=== PATIENT | female | born 1990 | race Caucasian/White ===

== ENCOUNTER 2017-06-27 13:20 | Emergency (ER) | payer OTHER ==
[~2017-06-27] VITALS: Ht 170.2 cm; Wt 85.6 kg
[2017-06-27 13:26] VITALS: TEMP 36.9; Ht 170.2 cm; Wt 85.6 kg
[2017-06-27] MEDS ORDERED: PHEN37.585 PO (13:40)
[2017-06-27] MEDS ORDERED: LISI-729 PO (13:40)
--- NOTE | 2017-06-27 13:48 | EMERGENCY ROOM VISIT NOTE ---
History First contact with patient: 13:27 Chief Complaint: ABDOMINAL PAIN Stated Complaint: PRESSURE AND PAIN IN LOWER AB (POSSIBLE MISCARR) Nursing Triage Summary: triage note: Pt reports she saw her POWDER TRUCK DRIVER this week on friday due to missing her period last month and then having bleeding and was passing clots. pt reports her POWDER TRUCK DRIVER told her she could have had a miscarriage. pt reports since last night she has had pain and pressure to abd, lower back and ribs. History of Present Illness The patient is a 26 year old female who presents to the Emergency Room with complaints of heavy vaginal bleeding and lower abdominal cramping/pressure that has been going on all week. The patient reports missing her period in May. She got her menses last June 19. She reports very heavy bleeding. She was bleeding through 2 tampons per hour with heavy clots. The bleeding has slowed down. The patient saw her zipper sewing machine operator earlier this week. She was told that she may have had a miscarriage. She is scheduled for an ultrasound next week. The patient has a history of factor V Leiden. She has been twice. One ended in a miscarriage. She denies any fever or chills. No problems with bowel movements or urination. No nausea or vomiting. Review of Systems 10 system review performed and negative unless noted in HPI or below Past Medical/Surgical History Factor V Leiden Family History Factor V Leiden Social History Smoking Status: Current Every Day Smoker Current/Historical Medications Scheduled Lisinopril (Zestril), 5 MG PO DAILY Phentermine Hcl (Adipex P), 37.5 MG PO DAILY Scheduled PRN Ibuprofen (Motrin), 600 MG PO Q6H PRN for Pain Tramadol (Ultram), 50 MG PO Q4H PRN for Pain Physical Exam Vital Signs Date Time Temp Pulse Resp B/P (MAP) Pulse Ox O2 Delivery O2 Flow Rate FiO2 06/27/17 15:20 98 16 135/78 96 Room Air 06/27/17 13:26 36.9 117 18 127/67 100 Room Air Physical Exam VITALS: Vitals are noted on the nurse's note and reviewed by myself. Vital signs stable. GENERAL: 26-year-old female, in no acute distress, nondiaphoretic, well- developed well-nourished. SKIN: The skin was without rashes, erythema, edema, or bruising. HEAD: Normocephalic atraumatic. NECK: Supple without nuchal rigidity. HEART: Regular rate and rhythm without murmurs gallops or rubs. LUNGS: Clear to auscultation bilaterally without wheezes, rales or rhonchi. No accessory muscle use. ABDOMEN: Positive bowel sounds x 4.Soft, mild tenderness to palpation particularly in the suprapubic region in the left lower quadrant. No guarding or rebound tenderness. Negative Rovsing sign. MUSCULOSKELETAL: No muscle atrophy, erythema, or edema noted. Strength 5/5 throughout. NEURO: Patient was alert and oriented to person place and time. Normal sensation to touch. No focal neurological deficits. Medical Decision & Procedures ER Provider Diagnostic Interpretation: pelvic US IMPRESSION: 1. Endometrial thickness of 9 mm with small amount of fluid within the cervical canal. No intrauterine gestational sac identified. Correlation with beta hCG levels is recommended. 2. No adnexal mass identified. Electronically signed by: Zeb Gale M.D. 06/27/2017 3:27 PM Dictated Date/Time: 06/27/2017 3:25 PM The status of this report is Signed. Draft = Not yet reviewed or approved by Radiologist. Signed = Reviewed and approved by Radiologist. Laboratory Results 06/27/17 13:30 Red Blood Count 4.39, Mean Corpuscular Volume 86.1, Mean Corpuscular Hemoglobin 28.5, Mean Corpuscular Hemoglobin Concent 33.1, Mean Platelet Volume 10.9, Neutrophils (%) (Auto) 75.7, Lymphocytes (%) (Auto) 17.8, Monocytes (%) (Auto) 5.1, Eosinophils (%) (Auto) 1.0, Basophils (%) (Auto) 0.1, Neutrophils # (Auto) 8.33, Lymphocytes # (Auto) 1.96, Monocytes # (Auto) 0.56, Eosinophils # (Auto) 0.11, Basophils # (Auto) 0.01 06/27/17 13:30 Test 06/27/17 13:30 06/27/17 14:00 White Blood Count 11.00 K/uL (4.8-10.8) Red Blood Count 4.39 M/uL (4.2-5.4) Hemoglobin 12.5 g/dL (12.0-16.0) Hematocrit 37.8 % (37-47) Mean Corpuscular Volume 86.1 fL (80-100) Mean Corpuscular Hemoglobin 28.5 pg (25-34) Mean Corpuscular Hemoglobin Concent 33.1 g/dl (32-36) Platelet Count 180 K/uL (130-400) Mean Platelet Volume 10.9 fL (7.4-10.4) Neutrophils (%) (Auto) 75.7 % Lymphocytes (%) (Auto) 17.8 % Monocytes (%) (Auto) 5.1 % Eosinophils (%) (Auto) 1.0 % Basophils (%) (Auto) 0.1 % Neutrophils # (Auto) 8.33 K/uL (1.4-6.5) Lymphocytes # (Auto) 1.96 K/uL (1.2-3.4) Monocytes # (Auto) 0.56 K/uL (0.11-0.59) Eosinophils # (Auto) 0.11 K/uL (0-0.5) Basophils # (Auto) 0.01 K/uL (0-0.2) RDW Standard Deviation 44.4 fL (36.4-46.3) RDW Coefficient of Variation 14.1 % (11.5-14.5) Immature Granulocyte % (Auto) 0.3 % Immature Granulocyte # (Auto) 0.03 K/uL (0.00-0.02) Anion Gap 5.0 mmol/L (3-11) Est Creatinine Clear Calc Drug Dose 151.1 ml/min Estimated GFR () 143.7 Estimated GFR (Non- 124.0 BUN/Creatinine Ratio 15.2 (10-20) Calcium Level 8.6 mg/dl (8.5-10.1) Total Bilirubin 0.7 mg/dl (0.2-1) Aspartate Amino Transf (AST/SGOT) 11 U/L (15-37) Alanine Aminotransferase (ALT/SGPT) 16 U/L (12-78) Alkaline Phosphatase 107 U/L (45-117) Total Protein 7.7 gm/dl (6.4-8.2) Albumin 3.9 gm/dl (3.4-5.0) Globulin 3.8 gm/dl (2.5-4.0) Albumin/Globulin Ratio 1.0 (0.9-2) Human Chorionic Gonadotropin, Quant < 1 mIU/mL Urine Color YELLOW Urine Appearance CLEAR (CLEAR) Urine pH 7.5 (4.5-7.5) Urine Specific [place] 1.017 (1.000-1.030) Urine Protein NEG (NEG) Urine Glucose (UA) NEG (NEG) Urine Ketones NEG (NEG) Urine Occult Blood TRACE (NEG) Urine Nitrite NEG (NEG) Urine Bilirubin NEG (NEG) Urine Urobilinogen NEG (NEG) Urine Leukocyte Esterase MODERATE (NEG) Urine WBC (Auto) 5-10 /hpf (0-5) Urine Hyaline Casts (Auto) 1-5 /lpf (0-5) Urine Epithelial Cells (Auto) >30 /lpf (0-5) Urine Bacteria (Auto) NEG (NEG) Urine Crystals CALCIUM OXALATE (NONE Medications Administered Medications (Trade) Dose Ordered Sig/Dominique Route Start Time Stop Time Status Last Admin Dose Admin Morphine Sulfate (MoRPHine SULFATE INJ) 4 mg Q1H PRN IV 06/27/17 15:15 07/11/17 15:14 06/27/17 16:04 4 MG Ketorolac Tromethamine (Toradol Inj) 30 mg NOW STAT IV 06/27/17 15:02 06/27/17 15:03 DC 06/27/17 16:05 30 MG Potassium Chloride (Klor-Con M10) 40 meq NOW STAT PO 06/27/17 15:45 06/27/17 15:46 DC 06/27/17 16:03 40 MEQ ED Course Patient was seen and examined Vital signs including blood pressure were reviewed medications list was verified with patient Labs were obtained, and a saline lock was established The patient was medicated with Toradol, morphine and given 1 dose of potassium Imaging was performed and reviewed The patient was reassessed and more comfortable. We discussed her results. The case was also discussed with supervising physician, who is in agreement with my plan I reviewed discharge instructions the patient. They voiced understanding and had no further questions. Medical Decision Differential diagnosis: Menorrhagia, miscarriage, missed , UTI, appendicitis, ovarian cyst, PID, endometriosis This patient is a 26-year-old female presents to the emergency department with heavy vaginal bleeding and lower abdominal cramping after missing her period the month of May. On exam: The patient had diffuse lower abdominal tenderness. She did not have any rebound tenderness. Labs reveal mild leukocytosis and slightly low potassium. Otherwise, they were unremarkable. Her hCG is negative. Pelvic ultrasound did not show any signs of a gestational sac. No ovarian cyst or torsion. I had a discussion with the patient regarding a possible appendicitis. I have a very low suspicion of this as her symptoms have been going on for quite some time. I would expect the patient to be much sicker at this point. She understands this, and does not want to pursue a CT of the abdomen and pelvis at this time. She was encouraged to return to the emergency department immediately for any new symptoms. She is in agreement with this plan. This chart was completed in part utilizing [employer] Speech Voice Recognition software. Attempts were made to minimize the grammatical errors, random word insertions, pronoun errors and incomplete sentences. Any formal questions or concerns about the content, text or information contained within the body of this dictation should be directly addressed to the provider for clarification. Medication Reconcilliation Current Medication List: was personally reviewed by me Blood Pressure Screening Patient's blood pressure: Normal blood pressure Impression Primary Impression: Abdominal pain Additional Impression: Vaginal bleeding Departure Information Dispostion Home / Self-Care Condition GOOD Prescriptions Tramadol (Ultram) 50 Mg Tab 50 MG PO Q4H Y for Pain, #12 TAB Prov: Lisa Hall PA-C 06/27/17 Ibuprofen (Motrin) 600 Mg Tab 600 MG PO Q6H Y for Pain, #12 TAB For Initial Treatment Prov: Lisa Hall PA-C 06/27/17 Referrals No Doctor, Assigned (PCP) Patient Instructions My [facility] Additional Instructions You were evaluated in the emergency department for abdominal pain and vaginal bleeding. The test was negative. Ibuprofen 600 mg every 6 hours Ultram 1 tab every 4 hours for severe pain. This may be taken with ibuprofen. Please follow-up with your zipper sewing machine operator and your primary care physician for a recheck as soon as possible. As discussed, do not hesitate to return to the emergency department with any new , worsening or concerning symptoms; especially, fever, worsening pain, vomiting increased vaginal bleeding (3 pads per hour) Problem Qualifiers
[2017-06-27 14:03] LABS: BASO % 0.1 %; BASO ABS # 0.01 K/uL (0-0.2); COMPLETE YES; HEMATOCRIT 37.8 % (37-47); IG% 0.3 %; LYMPH % 17.8 %; LYMPH ABS # 1.96 K/uL (1.2-3.4); MEAN CELL VOLUME 86.1 fL (80-100); MEAN CORPUSCULAR HEMOGLOBIN 28.5 pg (25-34); MEAN CORPUSCULAR HGB CONC 33.1 g/dl (32-36); MEAN PLATELET VOLUME 10.9 fL (7.4-10.4); MONO % 5.1 %; NEUT % 75.7 %; PLATELET COUNT 180 K/uL (130-400); RED BLOOD COUNT 4.39 M/uL (4.2-5.4)
[2017-06-27 14:21] LABS: BUN/CREATININE RATIO 15.2 (10-20); CALCIUM 8.6 mg/dl (8.5-10.1); CREATININE 0.64 mg/dl (0.60-1.20); POTASSIUM 3.3 mmol/L (3.5-5.1)
[2017-06-27 14:26] LABS: URINE APPEARANCE CLEAR (CLEAR); URINE BILIRUBIN NEG (NEG); URINE COLOR YELLOW; URINE EPITHELIAL CELL AUTO >30 /lpf (0-5); URINE NITRITE NEG (NEG); URINE PH 7.5 (4.5-7.5); URINE SPECIFIC GRAVITY 1.017 (1.000-1.030); UROBILINOGEN NEG (NEG)
[2017-06-27 14:27] LABS: MANUAL MICROSCOPIC REQUIRED? NO; REVIEW REQ? YES
[2017-06-27] MEDS ORDERED: KETOROLAC TROMETHAMINE 30 MG/ML VIAL IV STA (15:02)
[2017-06-27] MEDS ORDERED: MoRPHine SULFATE 4 MG/ML 1 ML CARP\\VIAL IV PRN (15:15)
--- NOTE | 2017-06-27 15:28 | DIAGNOSTIC IMAGING REPORT ---
TRANSVAG-FEMALE PELVIS CLINICAL HISTORY: Missed period. Now with heavy bleeding and cramping. Possible miscarriage. COMPARISON STUDY: No previous studies for comparison. TECHNIQUE: Transabdominal and transvaginal sonography of the pelvis was performed. FINDINGS: The uterus measures 9.3 x 4.3 x 6.6 cm. Endometrium measures 9 mm in thickness. There is a small amount of fluid within the cervical canal. No intrauterine gestational sac is identified. The right ovary measures 3.3 x 1.7 x 3.9 cm and the left measures 4.8 x 1.8 x 3.1 cm. Color flow is identified within each ovary. There is no free fluid. IMPRESSION: 1. Endometrial thickness of 9 mm with small amount of fluid within the cervical canal. No intrauterine gestational sac identified. Correlation with beta hCG levels is recommended. 2. No adnexal mass identified. Electronically signed by: Zeb Gale M.D. 06/27/2017 3:27 PM Dictated Date/Time: 06/27/2017 3:25 PM
[2017-06-27] MEDS ORDERED: POTASSIUM CHLORIDE 10 MEQ TABCR PO STA (15:45)
[2017-06-27] MEDS ORDERED: TRAM-10 PO (16:24)
[2017-06-27] MEDS ORDERED: IBUP600T44 PO (16:24)
[2017-06-27 17:15] VITALS: BP 127/74; PULSE 90; O2SAT 97
== END 2017-06-27 17:33 | disposition home or self-care (01) ==
LOC: EDBD 13:22 → C.EDB 13:22 → C.EDC 17:33
DX: R10.30 Lower abdominal pain, unspecified (principal); N93.9 Abnormal uterine and vaginal bleeding, unspecified; E87.6 Hypokalemia; D68.51 Activated protein C resistance; F17.200 Nicotine dependence, unspecified, uncomplicated

== ENCOUNTER 2017-08-07 11:07 | Emergency (ER) | payer OTHER ==
[~2017-08-07] VITALS: Ht 170.2 cm; Wt 84.6 kg
[~2017-08-07 11:07] MED LIST: IBUP600T44 PO; LISI-729 PO; PHEN37.585 PO; TRAM-10 PO
[2017-08-07 11:15] VITALS: TEMP 37.4; Ht 170.2 cm; Wt 84.6 kg
[2017-08-07] MEDS ORDERED: ACETAMINOPHEN 500 MG TAB PO STA (12:02)
--- NOTE | 2017-08-07 12:24 | DIAGNOSTIC IMAGING REPORT ---
CHEST ONE VIEW PORTABLE CLINICAL HISTORY: cough, flu BODYACHES, FEVER. SORE THROAT. COMPARISON STUDY: No previous studies for comparison. FINDINGS: The cardiac and mediastinal contours are normal. There is no evidence of focal pulmonary consolidation. There is no evidence of failure. No pleural effusions are visualized.[ IMPRESSION: No active disease in the chest. Electronically signed by: Ke Valente M.D. 08/07/2017 12:23 PM Dictated Date/Time: 08/07/2017 12:23 PM
[2017-08-07 12:46] LABS: INFLUENZA B ANTIGEN Neg for Influ B (NEG)
[2017-08-07 13:15] VITALS: BP 133/77; PULSE 120; O2SAT 95
--- NOTE | 2017-08-07 18:58 | EMERGENCY ROOM VISIT NOTE ---
History Report prepared by Kaitlynn: Bear Bradshaw Under the Supervision of: Dr. Homer Barton M.D. First contact with patient: 11:45 Chief Complaint: FLU LIKE SX Stated Complaint: FEVER, COUGH, BODY ACHES, SORE THROAT History of Present Illness The patient is a 26 year old female who presents to the Emergency Room with complaints of flu-like symptoms that began yesterday morning. She denies any known past medical history. At that time, the patient woke up feeling generalized body aches. Her symptoms then progressed into a headache and chills. She took her temperature that night because her symptoms worsened and found it to be 104 F. She then began having a productive cough with her symptoms persisting into today. Pt denies LOC, diaphoresis, visual changes, neck pain, chest pain, breathing difficulties, nausea, vomiting, abdominal pain , back pain, melena, hematochezia, urinary symptoms, numbness, weakness, lymphadenopathy, rash, or other complaints. Source of History: patient Onset: yesterday morning Position: other (Global) Symptom Intensity: moderate Quality: other (Flu-like symptoms) Timing: constant Associated Symptoms: + fevers, + chills, + headache, + cough (productive) Note: She is experiencing generalized body aches. Review of Systems See HPI for pertinent positives and negatives. A total of ten systems were reviewed and were otherwise negative. Past Medical & Surgical Medical Problems: (1) No Known Active Medical Problems Family History Cancer Diabetes mellitus Hypertension Lung disease Social History Smoking Status: Current Every Day Smoker Smokeless Tobacco Use: No Drug Use: none Marital Status: Housing Status: lives with family Current/Historical Medications Scheduled Lisinopril (Zestril), 5 MG PO DAILY Phentermine Hcl (Adipex P), 37.5 MG PO DAILY Allergies Coded Allergies: No Known Allergies (Unverified , 08/07/17) Physical Exam Vital Signs Date Time Temp Pulse Resp B/P (MAP) Pulse Ox O2 Delivery O2 Flow Rate FiO2 08/07/17 13:15 120 18 133/77 95 08/07/17 11:15 37.4 116 16 118/77 98 Room Air Physical Exam GENERAL: Awake, alert, non-ill appearing, no distress HEAD: Normocephalic, atraumatic. No edema. EYES: Normal conjunctiva. Sclera non-icteric. EARS: Right TM normal. Left TM normal. NOSE: Mild congestion. OROPHARYNX: Lips, tongue, and mucosa unremarkable. No erythema or exudate. NECK: Supple. No nuchal rigidity. FROM. No adenopathy. Negative jolt accentuation test. RESPIRATORY: CTA bilaterally. No wheezes rales or rhonchi. CARDIAC: Borderline tachycardic rate, normal rhythm. ABDOMEN: Soft, non distended. No tenderness to palpation. NEURO: Normal sensorium. SKIN: No rash or jaundice noted Medical Decision & Procedures ER Provider Diagnostic Interpretation: Radiology results as stated below per my review and radiologist interpretation: CHEST ONE VIEW PORTABLE CLINICAL HISTORY: cough, flu BODYACHES, FEVER. SORE THROAT. COMPARISON STUDY: No previous studies for comparison. FINDINGS: The cardiac and mediastinal contours are normal. There is no evidence of focal pulmonary consolidation. There is no evidence of failure. No pleural effusions are visualized.[ IMPRESSION: No active disease in the chest. Electronically signed by: Ke Valente M.D. 08/07/2017 12:23 PM Dictated Date/Time: 08/07/2017 12:23 PM Laboratory Results Test 08/07/17 12:10 Influenza Type A Antigen Neg for Influ A (NEG) Influenza Type B Antigen Neg for Influ B (NEG) Laboratory results reviewed by me Medications Administered Medications (Trade) Dose Ordered Sig/Dominique Route Start Time Stop Time Status Last Admin Dose Admin Acetaminophen (Tylenol Tab) 1,000 mg NOW STAT PO 08/07/17 12:02 08/07/17 12:03 DC 08/07/17 12:09 1,000 MG ED Course 1145: The patient was evaluated in room B4A. A complete history and physical exam was performed. 1202: Ordered Tylenol Tab 1000 mg PO 1318: I reevaluated the patient. Discussed results and discharge instructions: She verbalized understanding and agreement. The patient is ready for discharge. Medical Decision Triage Nursing notes reviewed and agree them. The patient's history was concerning for fever. Differential diagnosis: Etiologies such as otitis, pharyngitis, pneumonia, influenza,meningitis, urinary tract infection, sepsis, bacteremia, viral syndrome, as well as others were entertained. Physical examination: . Nontoxic. No meningeal findings. No hypoxia. ER treatment provided: Tylenol On reassessment the patient felt better. Diagnostics interpreted by me: The labs revealed unremarkable flu test. Imaging studies: This x-ray as above The patient is doing well. Her daughter has a viral-like syndrome and otitis media. Her had the same. I suspect the patient has the same as well. By the evaluation outlined above emergent etiologies such as otitis, pharyngitis, pneumonia, meningitis, urinary tract infection, sepsis, bacteremia , as well as others were deemed relatively unlikely. The patient and were informed about the findings as listed above. All questions were answered and they were pleased with the treatment. Return instructions were outlined and the patient was discharged in stable condition. Outpatient prescription management: None Referral: The patient was referred back to her primary care physician for follow-up in 2 to 3 days for a recheck of the current condition. Medication Reconcilliation Current Medication List: was personally reviewed by me Blood Pressure Screening Patient's blood pressure: Normal blood pressure Blood pressure disposition: Did not require urgent referral Impression Primary Impression: Influenza-like illness Scribe Attestation The scribe's documentation has been prepared under my direction and personally reviewed by me in its entirety. I confirm that the note above accurately reflects all work, treatment, procedures, and medical decision making performed by me. Departure Information Dispostion Home / Self-Care Referrals No Doctor, Assigned (PCP) Forms HOME CARE DOCUMENTATION FORM, IMPORTANT VISIT INFORMATION, Work Instructions Patient Instructions My [facility] Additional Instructions Acetaminophen(Tylenol) may be used for fever or pain. Use 1000mg every six hours as needed. Avoid using more than 4000mg in a 24 hour period. (AND/OR) Ibuprofen(Motrin, Advil) may be used for fever or pain. Use 600mg every six hours as needed. Take with food. Avoid using more than 2400mg in a 24 hour period. Do not use 2400mg per day for more than three consecutive days without physician direction. Prolonged inappropriate use can lead to stomach upset or ulcers. Afrin nasal spray: 2-3 sprays to each nostril twice daily as needed for congestion. Do not use for more than 3-4 days because it can lead to worsening rebound congestion. Rest and drink plenty of fluids. Controlling your fever with Tylenol and Ibuprofen as above will make you feel better. Wash your hands after nose blowing, sneezing, or coughing. Most germs are spread through contact, therefore improper hygiene may result in your close contacts and loved ones becoming ill just like you. Return to the ER for severe headache, neck stiffness, chest pain, difficulty breathing, fevers, vomiting, worsening of your condition, or as needed. Follow up with your primary physician this week for a recheck of your current condition.
== END 2017-08-07 13:25 | disposition home or self-care (01) ==
LOC: C.EDB 11:08
DX: R50.9 Fever, unspecified (principal); R05 Cough; R51 Headache; J02.9 Acute pharyngitis, unspecified; R52 Pain, unspecified

== ENCOUNTER 2023-03-04 07:36 | Inpatient (IN) ==
--- NOTE | 2023-02-28 11:07 | Anesthesiology Consultation ---
Date of Service February 28, 2023 Assessment & Plan (1) Encounter for pre-operative examination: Chart Review Chart Review: entry clerk initiated Pt following with [facility] Cement Conveyor Operator and M. Plan for c/s at 37 weeks 2/2 Gestational HTN (per chart review, pt had pre-eclamsia with first which resulted in c/s; baby was also breech). BP has been stable at recent visits. Pt following gestational diabetes diet and using insulin. History Surgery Operation Date: 03/04/23 09:30 Proposed Procedures p Repeat Section - Alanna Lim MD, PhD Height/Weight Height: 5 ft 7 in Weight: 106.594 kg Allergies Allergy/AdvReac Type Severity Reaction Status Date / Time No Known Drug Allergies Allergy Verified 02/28/23 10:03 Medications Home Medications Medication Instructions Recorded Confirmed Last Taken albuterol sulfate 90 mcg/actuation 2 puff inhalation Q6H PRN 02/28/23 02/28/23 Unknown aerosol inhaler Shortness Of Breath aspirin 81 mg capsule 81 mg PO HS 02/28/23 02/28/23 Unknown insulin glargine 100 unit/mL (3 15 unit subcut HS 02/28/23 02/28/23 Unknown mL) subcutaneous pen (Lantus Solostar U-100 Insulin) insulin glargine 100 unit/mL (3 20 unit subcut PENDING SALE TO [facility] 02/28/23 02/28/23 Unknown mL) subcutaneous pen (Lantus Solostar U-100 Insulin) iron,carbonyl 65 mg-vitamin C 125 1 tab PO BID 02/28/23 02/28/23 Unknown mg tablet,delayed release (Vitron-C) metformin 500 mg tablet 500 mg PO BID 02/28/23 02/28/23 Unknown vit no.95-ferrous 1 tab PO HS 02/28/23 02/28/23 Unknown fumarate 28 mg-folic acid 800 mcg tablet () trazodone 100 mg tablet 100 mg PO HS 02/28/23 02/28/23 Unknown Past Medical History Medical History (Updated 02/28/23 @ 11:05 by Anita Bocanegra PA-C) Factor V Leiden carrier baby aspirin daily, denies any history of blood clots Gestational diabetes using insulin Gestational hypertension per chart review; pf following with [facility] and monitoring History of COVID-2020--mild symptoms, does have intermittent coughing since then and was prescribed inhaler (per pt has not used inhaler at all during the last 9 months) History of pre-eclampsia per chart, c/s in 2016 was 2/2 breech and preeclampsia Migraine with aura Two vessel umbilical cord Past Family History Family History Father Deep vein thrombosis Factor V Leiden Has hx clots Clotting disorder Mother Factor V Leiden Does not think had clots Clotting disorder Other Diabetes Hypertension No family history of adverse response to anesthesia Denies family history of Ovarian cancer Breast cancer Colorectal cancer Uterine cancer Past Surgical History Surgical History (Updated 02/28/23 @ 11:00 by Anita Bocanegra PA-C) History of colonoscopy S/P per chart review, c/s in 2016 2/2 breech and preeclampsia S/P dilation and curettage Social History Smoking Status: Former smoker Do You Dip or Chew Tobacco: No Smoking End Date: quit 8 months ago Hx Alcohol Use: No (none since , prior 2x a year) Hx Substance Use: No substance use type: does not use Testing Laboratory Results 02/24/23: WBC: 10.95 H/H: 11.9/36.4 PLATELETS: 152 SODIUM: 136 POTASSIUM: 4.3 CHLORIDE: 104 CO2: 20 BUN: 8 CREATININE: 0.5 GLUCOSE: 76 AST: 7 ALT: 7 Alk Phos: 117
[~2023-03-04 07:36] MED LIST changes: +CITRIC ACID/SODIUM CITRATE 15 ML UDC PO SCH; -IBUP600T44 PO; +LACTATED RINGER'S 1,000 ML IV SCH; -LISI-729 PO; -PHEN37.585 PO; -TRAM-10 PO; +ceFAZolin 3,000 MG in DEXTROSE 5% 50 ML IV SCH
--- NOTE | 2023-03-04 08:06 | History & Physical Bridge Note ---
Date of Service March 04, 2023 History & Physical Bridge Note I have examined the patient, reviewed the History & Physical and in the interval since the performance of the History & Physical I have noted the following changes of clinical significance: no changes noted
--- NOTE | 2023-03-04 08:06 | Discharge Summary ---
Date of Service March 04, 2023 Admission HPI Per Admitting Provider Patient is a 32-year-old -0-3-1 at 37 weeks and 3 days scheduled for elective repeat at 37 weeks for gestational hypertension in . Patient was diagnosed with gestational hypertension on February 20. is also complicated by insulin controlled gestational diabetes. She was on 20 units prior to breakfast and 15 units at bedtime. She is also taking metformin 500 mg twice daily. also complicated by two-vessel cord, migraine with aura, heterogeneous factor V Leiden, antepartum anemia, excessive growth in the third trimester, history of preeclampsia last , rubella nonimmune, class I obesity Discharge Data Procedures Performed Operation Date: 03/04/23 09:30 Repeat [facility] Hospital Course (1) delivery delivered: (2) Heterozygous factor V Leiden affecting in third trimester, antepartum: Pt discharged home on Lovenox x 6 weeks
[2023-03-04] MEDS ORDERED: SODIUM CHLORIDE 0.9% 250 ML IV PRN (08:48)
[2023-03-04] MEDS ORDERED: LACTATED RINGER'S 1,000 ML IV PRN (09:23)
[2023-03-04] MEDS ORDERED: OXYTOCIN 30 UNITS/500 ML BAG IV PRN (09:23)
[2023-03-04] MEDS ORDERED: LIDOCAINE 1% LOCAL 20 ML VIAL INFIL PRN (09:23)
[2023-03-04] MEDS ORDERED: LACTATED RINGER'S 1,000 ML IV SCH ×3 (09:30→11:30)
[2023-03-04] MEDS ORDERED: ONDANSETRON INJ 2 MG/ML 2 ML VIAL ONE (09:52)
[2023-03-04] MEDS ORDERED: MoRPHine SULFATE PF 1 MG/ML 10 ML AMP/VIAL ONE (10:01)
[2023-03-04] MEDS ORDERED: fentaNYL citrate PF 100 MCG/2 ML VIAL ONE (10:01)
--- NOTE | 2023-03-04 10:14 | Anesthesiology Consultation ---
Date of Service March 04, 2023 Assessment & Plan Chart Review Chart Review: Acceptable Risk for Surgery ASA ASA3 Proposed Anesthesia Anesthesia Type: Spinal (back up GA) Risk / Benefits Reviewed With: PT / POA / Parent / Guardian, Accepts Plan and Informed Consent Obtained History Surgery Operation Date: 03/04/23 09:30 Proposed Procedures p Repeat Section - Alanna Lim MD, PhD Height/Weight Height: 5 ft 7 in Weight: 107.501 kg Allergies Allergy/AdvReac Type Severity Reaction Status Date / Time No Known Drug Allergies Allergy Verified 02/28/23 10:03 Medications Home Medications Medication Instructions Recorded Confirmed Last Taken albuterol sulfate 90 mcg/actuation 2 puff inhalation Q6H PRN 02/28/23 02/28/23 Unknown aerosol inhaler Shortness Of Breath aspirin 81 mg capsule 81 mg PO 02/28/23 03/04/23 03/02/23 20:00 insulin glargine 100 unit/mL (3 15 unit subcut 02/28/23 03/04/23 03/03/23 20:00 mL) subcutaneous pen (Lantus Solostar U-100 Insulin) insulin glargine 100 unit/mL (3 20 unit subcut [facility] 02/28/23 03/04/23 03/03/23 07:30 mL) subcutaneous pen (Lantus Solostar U-100 Insulin) iron,carbonyl 65 mg-vitamin C 125 1 tab PO BID 02/28/23 03/04/23 03/02/23 20:00 mg tablet,delayed release (Vitron-C) metformin 500 mg tablet 500 mg PO BID 02/28/23 03/04/23 03/03/23 20:00 vit no.95-ferrous 1 tab PO 02/28/23 03/04/23 03/02/23 20:00 fumarate 28 mg-folic acid 800 mcg tablet () trazodone 100 mg tablet 100 mg PO 02/28/23 03/04/23 03/02/23 20:00 Active Medications Generic Name Dose Route Start Last Admin Trade Name Freq PRN Reason Stop Dose Admin Lactated Ringer's 1,000 mls @ 999 mls/hr 03/04/23 09:30 03/04/23 10:13 Lr IV 03/04/23 10:30 Not Given .Q1H1M ZULAY Lactated Ringer's 1,000 mls @ 125 mls/hr 03/04/23 09:45 03/04/23 10:13 Lr IV 04/03/23 09:44 Not Given .Q8H ZULAY NPO Date Last Intake of Fluids: 03/03/23 Time Last Intake of Fluids: 17:00 Date Last Intake of Solids: 03/03/23 Time Last Intake of Solids: 17:00 Past Medical History Medical History (Updated 03/04/23 @ 09:16 by Alanna Lim MD, PhD) Anxiety Factor V Leiden carrier baby aspirin daily, denies any history of blood clots Gestational diabetes using insulin Gestational hypertension per chart review; pf following with MFM and monitoring History of COVID-19 2020--mild symptoms, does have intermittent coughing since then and was prescribed inhaler (per pt has not used inhaler at all during the last 9 months) History of pre-eclampsia per chart, c/s in 2016 was 2/2 breech and preeclampsia Migraine with aura Two vessel umbilical cord Exercise / Class Metabolic Activity 1 > 8 Run/Swim/Ski/Tennis Past Family History Family History Father Deep vein thrombosis Factor V Leiden Has hx clots Clotting disorder Mother Factor V Leiden Does not think had clots Clotting disorder Other Diabetes Hypertension No family history of adverse response to anesthesia Denies family history of Ovarian cancer Breast cancer Colorectal cancer Uterine cancer Past Surgical History Surgical History (Updated 03/04/23 @ 09:16 by Alanna Lim MD, PhD) History of colonoscopy S/P per chart review, c/s in 2016 2/2 breech and preeclampsia S/P dilation and curettage Past Anesthesia History No Hx of Anesthesia Complications and No Family Hx of Anesthesia Complications History of PONV No Hx of PONV and No Hx of Motion Sickness Social History Smoking Status: Former smoker Do You Dip or Chew Tobacco: No Smoking End Date: quit 8 months ago Hx Alcohol Use: No (none since , prior 2x a year) Hx Substance Use: No substance use type: does not use Review of Systems ROS Unobtainable: All systems reviewed & are unremarkable except as noted in HPI & below Physical Exam Vital Signs Last Vital Signs Temp 37 C 08/29/23 08:24 Pulse 93 H 03/04/23 08:24 Resp 20 03/04/23 08:24 BP 135/82 03/04/23 08:24 Constitutional no acute distress ENMT Mouth: no dentition abnormality Thyromental Distance: > or= 3.5 Finger Breadths Mallampati Class: II Neck normal visual inspection and trachea midline Respiratory normal respiratory effort Auscultation: lungs clear to auscultation bilaterally Cardiovascular Rate/Rhythm: regular rate and regular rhythm Musculoskeletal Spine: normal cervical ROM Extremities: extremities normal to inspection Skin no rashes Neurologic moves all extremities Testing Laboratory Results Blood Type A Positive 03/04/23 07:55 Antibody Screen NEGATIVE 03/04/23 07:55 03/04/23 07:59 POC Glucose 101 H
[2023-03-04] MEDS ORDERED: PROMETHAZINE HCL 12.5 MG in SODIUM CHLORIDE 0.9% 50 ML IV PRN (10:16)
[2023-03-04] MEDS ORDERED: MoRPHine SULFATE PF 1 MG/ML 10 ML AMP/VIAL INT SPINAL ONE (10:16)
[2023-03-04] MEDS ORDERED: LACTATED RINGER'S 500 ML IV PRN (10:16)
[2023-03-04] MEDS ORDERED: MEPERIDINE HCL 25 MG/ML CARP/VIAL IV PRN (10:16)
[2023-03-04] MEDS ORDERED: NALOXONE HCL 1 MG in SODIUM CHLORIDE 0.9% 1000ML 1,000 ML IV PRN (10:16)
[2023-03-04] MEDS ORDERED: HYDROmorphone INJ 0.5 MG/0.5 ML SYR IV PRN (10:16)
[2023-03-04] MEDS ORDERED: MoRPHine SULFATE 2 MG/ML CARP IV PRN (10:16)
[2023-03-04] MEDS ORDERED: diphenhydrAMINE 50 MG/ML VIAL IV PRN (10:16)
[2023-03-04] MEDS ORDERED: NALOXONE HCL 0.4 MG/1 ML VIAL/CARP IV PRN (10:16)
[2023-03-04] MEDS ORDERED: NALOXONE HCL 0.08 MG in SYRINGE 1.8 ML IV PRN (10:16)
[2023-03-04] MEDS ORDERED: ePHEDrine sulfate 50 MG/ML AMP IV PRN (10:16)
[2023-03-04] MEDS ORDERED: ONDANSETRON INJ 2 MG/ML 2 ML VIAL IV PRN (10:16)
[2023-03-04] MEDS ORDERED: DC INTRASPINAL MORPHINE SCH (10:30)
[2023-03-04] MEDS ORDERED: SODIUM CHLORIDE 0.9% 1000ML 1,000 ML IV SCH (10:30)
[2023-03-04] MEDS ORDERED: NO NARCOTICS OR SEDATIVES SCH (10:30)
[2023-03-04] MEDS ORDERED: PHENYLEPHRINE 100MCG/ML 5ML SYR ONE (10:54)
[2023-03-04] MEDS ORDERED: MAGNESIUM HYDROXIDE SUSP 30 ML UDC PO PRN (11:22)
[2023-03-04] MEDS ORDERED: DIPHTHERIA/TETANUS/PERTUSSIS Vaccine (Tdap, Age 7+yrs) 0.5mL SYR/VL IM ONE (11:22)
[2023-03-04] MEDS ORDERED: HYDROCORTISONE ACETATE 25 MG SUPP PR PRN (11:22)
[2023-03-04] MEDS ORDERED: BENZOCAINE 20% SPRY 85 APPLN/85 GM CAN EXT PRN (11:22)
[2023-03-04] MEDS ORDERED: SENNA 8.6 MG TAB PO PRN (11:22)
[2023-03-04 11:23] LABS: Basophils # (auto) 0.02 K/uL (0.00-0.20); Basophils % (auto) 0.2 %; Eosinophils # (auto) 0.03 K/uL (0.00-0.50); Eosinophils % (auto) 0.3 %; Hematocrit (blood only) 35.1 % (37.0-47.0); Hemoglobin 11.5 g/dl (12.0-16.0); Immature Granulocytes # (auto) 0.06 K/uL (0.01-0.20); Immature Granulocytes % (auto) 0.6 %; Lymphocytes # (auto) 1.83 K/uL (1.20-3.40); Lymphocytes % (auto) 18.2 %; Mean Corpuscular Hemoglobin 27.8 pg (25.0-34.0); Mean Corpuscular Hgb Conc 32.8 g/dL (32.0-36.0); Mean Platelet Volume 11.6 fL (9.4-12.4); Monocytes # (auto) 0.54 K/uL (0.11-0.59); Monocytes % (auto) 5.4 %; Neutrophils % (auto) 75.3 %; Platelet Count 147 K/uL (130-400); RDW Coefficient of Variation 16.6 % (11.5-14.5); RDW Standard Deviation 51.7 fL (36.4-46.3); Red Blood Count 4.13 M/uL (4.20-5.40); White Blood Count 10.08 K/ul (4.8-10.8)
--- NOTE | 2023-03-04 11:26 | Operative Report ---
Post Operative Report Pre & Post Diagnosis Operation Date: 03/04/23 09:30 1. 32-year-old -0-3-1 at 37 weeks and 3 days 2. Gestational hypertension at term 3. Previous 4. Desires repeat 5. Insulin controlled gestational diabetes 6. Rubella nonimmune 7. Heterogeneous factor V Leiden mutation I identified the patient and participated in the time-out.: Yes Procedure Operation Date: 03/04/23 09:30 Primary lower transverse delivery via Pfannenstiel incision Surgeon Alanna Lim MD, PhD Manager Presentation Suzan Moss PA-C Estimated Blood Loss 700 Findings Consistent with Post-Op Diagnosis Liveborn male delivered at 1104, weight pending Apgars 8/9 Intact placenta with two-vessel cord. Normal-appearing uterus, normal-appearing bilateral fallopian tubes and ovaries seen at time of surgery Fluids See anesthesia record Specimens Placenta Drains Christianson catheter Anesthesia Type Spinal Complications None Disposition Accompanied Patient To Recovery: No Indications Previous that desires repeat, gestational hypertension at term Description of Procedure section was recommended. Risks, benefits and alternatives were discussed including but not limited to infection, bleeding that may require blood products or hysterectomy for life saving measures, injury to surrounding organs including but not limited to bowel, bladder, ureters, tubes and ovaries and/or the baby. Should injury occur it could require longer/additional surgery to repair. Patient was also counselled about risk of DVT/PE, and injury to during delivery. The patient stated understanding and desired to proceed. All questions were answered posed by patient. Prior to being taken to the OR, 3 grams of cefazolin IV was administered. The patient was taken to the operating room where regional anesthesia was found to be adequate. Prior to monitors being removed FHR was bpm with no decelerations. She was then prepared and draped in the usual sterile fashion in the dorsal supine position with a leftward tilt displacing the uterus. Christianson was draining to gravity. SCDs were on bilateral lower extremities. A pfannenstiel skin incision was then made with the scalpel and carried through to the underlying layer of fascia. The fascia was incised in the midline and the incision extended laterally with the Purcell scissors. The superior aspect of the facial incision was then grasped with the Valentina clamps, elevated and the underlying rectus muscles dissected off bluntly. Attention was then turned to the inferior aspect of this incision which in a similar fashion was grasped, elevated with the Valentina clamps and the rectus muscle dissected off bluntly. The rectus muscles were in the midline. The peritoneum identified, grasped with the pick-ups and entered sharply with the Metzenbaum scissors. The peritoneal incision was then extended superiorly and inferiorly with good visualization of the bladder. The bladder blade was inserted and the vesicouterine peritoneum was identified, grasped with the pick-ups, and entered sharply with Metzenbaum scissors. This incision was then extended laterally and the bladder flap created digitally and the bladder blade was reinserted. The lower uterine segment was identified and incised in a transverse fashion with the scalpel. The uterine incision was then extended bluntly laterally. Artificial rupture of membranes demonstrated clear fluid. The bladder blade was removed. The fetus was in cephalic presentation. The 's head delivered atraumatically. The anterior shoulders were delivered followed by the posterior shoulders then the remainder of the body. The infant's mouth and nose were bulb suctioned. The umbilical cord was clamped times two and cut. The was handed off to the awaiting peds staff. A male infant was delivered weight pending, with APGARS of 8 at 1 minute and 9 at 5 minutes. The infant was taken to the recovery room for transition. Cord blood gases were obtained. The placenta was removed with gentle traction. 30 units of oxytocin were added to IVF and allowed to run freely. The uterus was exteriorized and cleared of all clots and debris. The uterine incision was inspected and found to be without any extensions and was repaired with 0 Vicryl in a running, locked fashion. A second imbricating layer was performed. Upon inspection, the repaired hysterotomy was found to be hemostatic. The uterus was firm and returned to the abdomen. The gutters were cleared of all clots and debris. The fascia was reapproximated with 0 Vicryl in a running fashion. The subcutaneous layer was closed with 2-0 Vicrylthe skin was closed in a subcuticular fashion with 4-0 vicryl. Dorothea dressing applied over the incision The patient tolerated the procedure well. Sponge, lap and needle counts were correct x4. The patient was taken to the recovery room in stable condition. Attestation: My Manager Presentation was necessary throughout the procedure(s) for tissue retraction I understand that section 1842 (b)(7)(D) of the Social Security Act generally prohibits Medicare physician fee schedule payment for the services of [id number] in teaching hospitals when qualified residents are available to furnish such services. I certify that the services for which payment is claimed were medically necessary, and that no qualified resident was available to perform the services. I further understand that these services are subject to post-payment review by the Medicare carrier. I attest to the content of the Intraoperative Record and any orders documented therein. Any exceptions are noted below.
--- NOTE | 2023-03-04 12:12 | Anesthesiology Progress Note ---
Date of Service March 04, 2023 Anesthesia Post Procedure Vital Signs Vital Signs: Temp Pulse Resp BP Pulse Ox 03/04/23 11:30 36.7 C 20 03/04/23 08:24 37 C 93 H 20 135/82 03/04/23 12:09 85 96 03/04/23 12:04 88 97 03/04/23 12:05 86 131/72 03/04/23 11:59 91 H 97 03/04/23 11:54 97 H 96 03/04/23 11:55 100 H 122/66 03/04/23 11:49 98 H 97 03/04/23 11:45 98 H 144/66 H 03/04/23 11:44 97 H 96 03/04/23 11:39 91 03/04/23 11:39 95 H 03/04/23 11:39 95 H 92 03/04/23 11:34 96 H 98 03/04/23 11:29 98 H 96 03/04/23 11:30 93 H 127/62 03/04/23 07:38 93 H 135/82 Transfer of Care Handoff Completed per policy Notes Mental Status: alert / awake / arousable Patient Amnestic to Procedure: No Nausea / Vomiting: adequately controlled Pain: adequately controlled Airway Patency, RR, SpO2: stable & adequate BP & HR: stable & adequate Hydration State: stable & adequate Neuraxial Anesthesia: was administered and sensory block is resolving Anesthetic Complications: no major complications apparent and Pt Satisfied with anesthetic care
[2023-03-04] MEDS: NALBUPHINE HCL INJ 10 MG/ML AMP IV PRN ×2 (13:40→20:20)
[2023-03-04 13:53] LABS: Est GFR (African American) > 150.0 ml/min; Est GFR (Non-African American) 136.6 ml/min
[2023-03-04] MEDS ORDERED: ALBUTEROL HFA 8 GM INHALER INH PRN (13:59)
[2023-03-04] MEDS ORDERED: OXYTOCIN 10 UNITS/ML VIAL ONE (14:07)
[2023-03-04] MEDS: SIMETHICONE 80 MG CHEW PO SCH ×3 (18:12→20:16)
[2023-03-04] MEDS: OXYTOCIN 20 UNITS in LACTATED RINGER'S 1,000 ML IV SCH (18:50)
[2023-03-04] MEDS: FERROUS SULFATE 325 MG TAB PO SCH (20:16)
[2023-03-04] MEDS: ASCORBIC ACID 500 MG TAB PO SCH (20:17)
[2023-03-04] MEDS: DOCUSATE SODIUM 100 MG CAP PO SCH (20:17)
[2023-03-04] MEDS ORDERED: NON-FORMULARY MEDICATION (Pnv Cmb#95-Ferrous Fumarate-Fa [Prenatal] 28 mg iron- 800 mcg Ta PO SCH (21:00)
[2023-03-04] MEDS ORDERED: FERROUS SULFATE 325 MG TAB PO SCH (21:00)
[2023-03-05] MEDS ORDERED: ACETAMINOPHEN 500 MG TAB PO PRN (01:25)
[2023-03-05] MEDS: OXYTOCIN 20 UNITS in LACTATED RINGER'S 1,000 ML IV SCH (03:17)
[2023-03-05] MEDS ORDERED: FERROUS SULFATE 325 MG TAB PO SCH (08:00)
[2023-03-05] MEDS: DOCUSATE SODIUM 100 MG CAP PO SCH ×2 (09:00→21:16)
[2023-03-05] MEDS: NALBUPHINE HCL INJ 10 MG/ML AMP IV PRN (09:00)
[2023-03-05] MEDS: SIMETHICONE 80 MG CHEW PO SCH ×4 (09:01→21:15)
[2023-03-05] MEDS: PRENATAL VITAMIN 1 TAB PO SCH (09:01)
[2023-03-05] MEDS: FERROUS SULFATE 325 MG TAB PO SCH ×2 (09:01→17:16)
[2023-03-05] MEDS: ASCORBIC ACID 500 MG TAB PO SCH ×3 (09:02→21:18)
[2023-03-05 09:25] LABS: Basophils # (auto) 0.01 K/uL (0.00-0.20); Basophils % (auto) 0.1 %; Eosinophils # (auto) 0.09 K/uL (0.00-0.50); Eosinophils % (auto) 0.9 %; Hematocrit (blood only) 31.2 % (37.0-47.0); Hemoglobin 10.2 g/dl (12.0-16.0); Immature Granulocytes # (auto) 0.06 K/uL (0.01-0.20); Immature Granulocytes % (auto) 0.6 %; Lymphocytes % (auto) 16.1 %; Mean Corpuscular Hemoglobin 27.6 pg (25.0-34.0); Mean Corpuscular Hgb Conc 32.7 g/dL (32.0-36.0); Mean Corpuscular Volume 84.3 fL (80.0-100.0); Mean Platelet Volume 11.6 fL (9.4-12.4); Monocytes # (auto) 0.73 K/uL (0.11-0.59); Monocytes % (auto) 7.3 %; Neutrophils # (auto) 7.46 K/uL (1.40-6.50); Platelet Count 126 K/uL (130-400); RDW Standard Deviation 52.2 fL (36.4-46.3); White Blood Count 9.95 K/ul (4.8-10.8)
--- NOTE | 2023-03-05 09:28 | Obstetrical Progress Note ---
Date of Service March 05, 2023 Assessment & Plan Admission and Anticipated Discharge Date Admission Date: March 04, 2023 Subjective Patient is seen and examined. She feels well, no complaints. Pain is under control with oral meds. No OOB yet. Tolerating regular diet with out N&V Flatus + BM neg Bleeding is minimal No fever/ chills/ CP/ SOB/ N&V/ Leg pain Breast feeding without problems Vital Signs Temp Pulse Resp BP Pulse Ox O2 Del Method 03/05/23 05:00 18 03/05/23 04:00 18 03/05/23 06:00 18 03/05/23 03:00 18 95 03/05/23 04:30 36.8 C 91 H 18 130/90 03/05/23 02:00 18 03/05/23 01:00 18 03/05/23 00:00 18 94 03/04/23 23:00 18 03/04/23 22:00 18 95 03/05/23 00:45 37.0 C 101 H 18 131/84 93 Room Air Lab Results 03/04/23 03/04/23 03/04/23 Range/Units 07:55 07:58 07:59 WBC 10.08 (4.8-10.8) K/ul RBC 4.13 L (4.20-5.40) M/uL Hgb 11.5 L (12.0-16.0) g/dl Hct 35.1 L (37.0-47.0) % MCV 85.0 (80.0-100.0) fL MCH 27.8 (25.0-34.0) pg MCHC 32.8 (32.0-36.0) g/dL RDW Std Deviation 51.7 H (36.4-46.3) fL RDW Coeff of José Luis 16.6 H (11.5-14.5) % Plt Count 147 (130-400) K/uL MPV 11.6 (9.4-12.4) fL Immature Gran % (Auto) 0.6 % Neut % (Auto) 75.3 % Lymph % (Auto) 18.2 % Brantley % (Auto) 5.4 % Eos % (Auto) 0.3 % Baso % (Auto) 0.2 % Neut # (Auto) 7.60 H (1.40-6.50) K/uL Lymph # (Auto) 1.83 (1.20-3.40) K/uL Brantley # (Auto) 0.54 (0.11-0.59) K/uL Eos # (Auto) 0.03 (0.00-0.50) K/uL Baso # (Auto) 0.02 (0.00-0.20) K/uL Immature Gran # (Auto) 0.06 (0.01-0.20) K/uL Creatinine (0.6-1.2) mg/dl Est Cr Clr Drug Dosing ml/min Est GFR ( Amer) ml/min Est GFR (Non-Af Amer) ml/min POC Glucose 101 H (70-99) mg/dl Blood Type A Positive Antibody Screen NEGATIVE Crossmatch See Detail 03/04/23 03/05/23 Range/Units 13:08 08:30 WBC 9.95 (4.8-10.8) K/ul RBC 3.70 L (4.20-5.40) M/uL Hgb 10.2 L (12.0-16.0) g/dl Hct 31.2 L (37.0-47.0) % MCV 84.3 (80.0-100.0) fL MCH 27.6 (25.0-34.0) pg MCHC 32.7 (32.0-36.0) g/dL RDW Std Deviation 52.2 H (36.4-46.3) fL RDW Coeff of José Luis 17.0 H (11.5-14.5) % Plt Count 126 L (130-400) K/uL MPV 11.6 (9.4-12.4) fL Immature Gran % (Auto) 0.6 % Neut % (Auto) 75.0 % Lymph % (Auto) 16.1 % Brantley % (Auto) 7.3 % Eos % (Auto) 0.9 % Baso % (Auto) 0.1 % Neut # (Auto) 7.46 H (1.40-6.50) K/uL Lymph # (Auto) 1.60 (1.20-3.40) K/uL Brantley # (Auto) 0.73 H (0.11-0.59) K/uL Eos # (Auto) 0.09 (0.00-0.50) K/uL Baso # (Auto) 0.01 (0.00-0.20) K/uL Immature Gran # (Auto) 0.06 (0.01-0.20) K/uL Creatinine 0.42 L (0.6-1.2) mg/dl Est Cr Clr Drug Dosing 245.0 ml/min Est GFR ( Amer) > 150.0 ml/min Est GFR (Non-Af Amer) 136.6 ml/min POC Glucose (70-99) mg/dl Blood Type Antibody Screen Crossmatch PE: General: Alert, orientedx3, NAD CVS: S1S2 RRR Lungs; CTAB Abd: soft, NT, ND, BS+, fundus firm, below Umbilicus Incision/ dressing: Clean, dry, intact Perineum intact, Lochia rubra minimal Ext; NT, no edema AP: 32 yo s/p C Section, pod# 1 VSS Afebrile doing well Continue routine postop care Encourage ambulation, PO intake All questions were answered Results & Data Vital Signs (Past 12 Hours) Vital Signs Temp Pulse Resp BP Pulse Ox O2 Del Method 03/05/23 05:00 18 93 03/05/23 04:00 18 93 03/05/23 06:00 18 92 03/05/23 03:00 18 95 03/05/23 04:30 36.8 C 91 H 18 130/90 03/05/23 02:00 18 92 03/05/23 01:00 18 93 03/05/23 00:00 18 94 03/04/23 23:00 18 95 03/04/23 22:00 18 95 03/05/23 00:45 37.0 C 101 H 18 131/84 93 Room Air
[2023-03-05 09:41] LABS: Alanine Aminotransferase 6 U/L (7-52); Albumin Level 2.8 gm/dl (3.4-5.0); Alkaline Phosphatase 94 U/L (34-104); Anion Gap 7 (3-11); Aspartate Aminotransferase 13 U/L (13-39); BUN Creatinine Ratio 14.3 (10-20); Bilirubin,Total 0.7 mg/dl (0.2-1.0); Blood Urea Nitrogen 7 mg/dl (6-23); Calcium 8.2 mg/dl (8.6-10.3); Carbon Dioxide 26 mmol/L (21-32); Chloride 103 mmol/L (98-107); Est GFR (African American) > 150.0 ml/min; Est GFR (Non-African American) 129.8 ml/min; Globulin 2.8 gm/dl (2.5-4.0); Glucose 88 mg/dl (70-99(Fasting)); Potassium 3.8 mmol/L (3.5-5.1); Sodium 136 mmol/L (136-145); Total Protein 5.6 gm/dl (6.0-8.3)
[2023-03-05] MEDS ORDERED: PROMETHAZINE HCL 25 MG in SODIUM CHLORIDE 0.9% 50 ML IV PRN (10:30)
[2023-03-05] MEDS ORDERED: diphenhydrAMINE 50 MG/ML VIAL IV PRN (10:30)
[2023-03-05] MEDS ORDERED: MEPERIDINE HCL 50 MG/ML CARP IV PRN (10:30)
[2023-03-05] MEDS ORDERED: KETOROLAC 30 MG/ML VIAL IV PRN (10:30)
[2023-03-05] MEDS ORDERED: diphenhydrAMINE Capsule 25 MG CAP PO PRN (10:30)
[2023-03-05] MEDS ORDERED: ONDANSETRON INJ 2 MG/ML 2 ML VIAL IV PRN (10:30)
[2023-03-05] MEDS: ENOXAPARIN INJ 40 MG/0.4 ML SYR SQ SCH (11:20)
[2023-03-05] MEDS: IBUPROFEN 600 MG TAB PO PRN ×2 (11:21→17:16)
[2023-03-05] MEDS: oxyCODONE/ACETAMINOPHEN 5mg/325mg TAB PO PRN ×3 (11:22→21:23)
[2023-03-05] MEDS ORDERED: bisacodyL 5 MG TABEC PO SCH (20:00)
[2023-03-05] MEDS ORDERED: traZODone HCL 100 MG TAB PO SCH (21:00)
[2023-03-06] MEDS: oxyCODONE/ACETAMINOPHEN 5mg/325mg TAB PO PRN ×2 (01:25→12:23)
[2023-03-06] MEDS: IBUPROFEN 600 MG TAB PO PRN ×2 (01:26→12:23)
[2023-03-06 06:53] LABS: Hematocrit (blood only) 30.7 % (37.0-47.0); Hemoglobin 10.3 g/dl (12.0-16.0)
[2023-03-06] MEDS: FERROUS SULFATE 325 MG TAB PO SCH (08:48)
[2023-03-06] MEDS: DOCUSATE SODIUM 100 MG CAP PO SCH (08:48)
[2023-03-06] MEDS: SIMETHICONE 80 MG CHEW PO SCH ×2 (08:48→14:08)
[2023-03-06] MEDS: PRENATAL VITAMIN 1 TAB PO SCH (08:48)
[2023-03-06] MEDS: ENOXAPARIN INJ 40 MG/0.4 ML SYR SQ SCH (08:49)
[2023-03-06] MEDS: ASCORBIC ACID 500 MG TAB PO SCH (08:55)
--- NOTE | 2023-03-06 09:55 | Obstetrical Progress Note ---
Date of Service March 06, 2023 Assessment & Plan (1) delivery delivered: POD #2 pt doing well d/c home with instructions Subjective Ambulation: ambulating normally Voiding: no voiding problems Passing Gas:: Yes Diet Tolerance:: clear liquids Lochia:: Small Feeding Type:: breast feeding Review of Systems All systems reviewed & are unremarkable except as noted in HPI & below Physical Exam Constitutional WD/WN, vitals as above well developed and well nourished Eyes PERRL, conjunctivae normal, anicteric sclerae ENMT external ear and nose normal, oropharynx normal Neck trachea midline, no thyromegaly Respiratory normal respiratory effort, lungs clear to auscultation Cardiovascular RRR, no murmur, no edema Chest (Breasts) normal inspection/palpation of breasts Gastrointestinal (Abdomen) normal bowel sounds, soft, nontender, no hepatosplenomegaly Musculoskeletal no cyanosis or clubbing, extremities motor strength 5/5 Skin no rashes, warm and dry + incision (Clean,dry and intact) Neurologic patellar DTR's 2+ bilat, sensation intact Psychiatric A+Ox3, euthymic affect Genitourinary normal external appearance Lymphatic no cervical or axillary lymphadenopathy Results & Data Vital Signs (Past 12 Hours) Vital Signs Temp Pulse Resp BP Pulse Ox O2 Del Method 03/06/23 01:20 36.7 C 03/05/23 23:30 36.5 C 91 H 16 135/86 96 Room Air
--- NOTE | 2023-03-06 10:26 | Progress Note ---
Date of Service March 06, 2023 Assessment & Plan (1) delivery delivered: (2) Heterozygous factor V Leiden affecting in third trimester, antepartum: Plan: Pt discharged home on Lovenox x 6 weeks Admission and Anticipated Discharge Date Admission Date: March 04, 2023 Results & Data Vital Signs (Past 12 Hours) Vital Signs Temp Pulse Resp BP Pulse Ox O2 Del Method 03/06/23 01:20 36.7 C 03/05/23 23:30 36.5 C 91 H 16 135/86 96 Room Air
[2023-03-06] MEDS ORDERED: bisacodyL 10 MG SUPP PR PRN (11:23)
[2023-03-06] MEDS ORDERED: MEASLES, MUMPS & RUBELLA VIRUS VIAL SQ ONE (11:50)
== END 2023-03-06 15:45 | disposition home or self-care (01) | DRG 787 ==
LOC: 4S1 07:36 → 4E2 15:41 → EDSTATUS 03-19 07:30